=== PATIENT | female | born 1970 | race Caucasian/White ===

== ENCOUNTER 2018-01-31 15:15 | Emergency (ER) | payer SELFPAY ==
[~2018-01-31] VITALS: Ht 170.2 cm; Wt 50.7 kg
[2018-01-31 16:00] LABS: ALANINE AMINOTRANSFERASE 16 U/L (12-78); ALBUMIN 3.6 g/dL (3.4-5.0); ANION GAP 8 mmol/L (5-15); CALCIUM 8.8 mg/dL (8.5-10.1); CHLORIDE 108 mmol/L (98-107)
[2018-01-31 16:05] LABS: ALKALINE PHOSPHATASE 71 U/L (45-117); BILIRUBIN,TOTAL 0.4 mg/dL (0.2-1.0); CREATININE 1.12 mg/dL (0.55-1.02)
[2018-01-31 16:37] LABS: MICROSCOPIC NOT IND
[2018-01-31 16:41] LABS: CULTURE INDICATED? NO
[2018-01-31 16:45] LABS: BASOPHILS # (AUTO) 0.02 x10^3/uL (0-0.1); BASOPHILS % (AUTO) 0 % (0-1); EOSINOPHILS # (AUTO) 0.11 x10^3/uL (0-0.4); EOSINOPHILS % (AUTO) 2 % (1-7); LYMPHOCYTES % (AUTO) 32 % (22-44); MD SCAN; MEAN CORPUSCULAR HEMOGLOBIN 18.7 pg (27.0-34.8); MEAN CORPUSCULAR VOLUME 60.3 fL (80-100); MEAN PLATELET VOLUME 7.6 fL (7.4-10.4); MONOCYTES # (AUTO) 0.36 x10^3/uL (0.2-0.8); MONOCYTES % (AUTO) 6 % (2-9); NEUTROPHILS # (AUTO) 3.62 x10^3/uL (1.8-6.8); NEUTROPHILS % (AUTO) 60 % (42-75); PLATELET COUNT 308 x10^3/uL (130-400); RED BLOOD COUNT 5.28 x10^6/uL (3.82-5.3)
[2018-01-31] MEDS ORDERED: IBUPROFEN 200 MG TABLET ONE (17:28)
[2018-01-31] MEDS ORDERED: ACETAMINOPHEN 325 MG TABLET ONE (17:29)
[2018-01-31] MEDS ORDERED: ACETAMINOPHEN 325 MG TABLET PO ONE (17:30)
[2018-01-31] MEDS ORDERED: IBUPROFEN 200 MG TABLET PO ONE (17:30)
[2018-01-31 19:34] VITALS: BP 129/84
== END 2018-01-31 20:27 | disposition home or self-care (01) ==
LOC: ED 17:24
DX: N83.209 Unspecified ovarian cyst, unspecified side (principal); M54.9 Dorsalgia, unspecified
CPT/HCPCS: 36415; 74176; 80053; 81003; 83690; 84703; 85025; 93975; 99285

== ENCOUNTER 2018-02-03 11:19 | Emergency (ER) | payer SELFPAY ==
[~2018-02-03] VITALS: Ht 170.2 cm; Wt 50.4 kg
[2018-02-03] MEDS ORDERED: SODIUM CHLORIDE FLUSH 10ML SYR IVF ONE (12:30)
[2018-02-03] MEDS ORDERED: HYDROmorphone 2 MG/ML, 1ML IVPush PRN (12:30)
[2018-02-03] MEDS ORDERED: ONDANSETRON 2MG/ML, 2ML IVPush ONE (12:30)
[2018-02-03 12:56] LABS: BASOPHILS # (AUTO) 0.01 x10^3/uL (0-0.1); BASOPHILS % (AUTO) 0 % (0-1); EOSINOPHILS # (AUTO) 0.24 x10^3/uL (0-0.4); EOSINOPHILS % (AUTO) 4 % (1-7); LYMPHOCYTES # (AUTO) 1.55 x10^3/uL (1-3.4); LYMPHOCYTES % (AUTO) 24 % (22-44); MD NO; MEAN CORPUSCULAR HEMOGLOBIN 18.6 pg (27.0-34.8); MEAN CORPUSCULAR HGB CONC 30.3 g/dL (32.4-35.8); MEAN CORPUSCULAR VOLUME 61.3 fL (80-100); MEAN PLATELET VOLUME 7.5 fL (7.4-10.4); MONOCYTES # (AUTO) 0.58 x10^3/uL (0.2-0.8); MONOCYTES % (AUTO) 9 % (2-9); NEUTROPHILS # (AUTO) 4.02 x10^3/uL (1.8-6.8); NEUTROPHILS % (AUTO) 63 % (42-75); PLATELET COUNT 308 x10^3/uL (130-400); RED BLOOD COUNT 5.24 x10^6/uL (3.82-5.3); RED CELL DISTRIBUTION WIDTH 18.5 % (9.6-15.2)
[2018-02-03] MEDS ORDERED: ONDANSETRON 2MG/ML, 2ML ONE (12:56)
[2018-02-03] MEDS ORDERED: HYDROmorphone 2 MG/ML, 1ML ONE (12:56)
[2018-02-03 13:02] LABS: ALBUMIN 3.8 g/dL (3.4-5.0); ANION GAP 9 mmol/L (5-15); CALCIUM 8.8 mg/dL (8.5-10.1); CHLORIDE 108 mmol/L (98-107)
[2018-02-03 13:08] LABS: ALANINE AMINOTRANSFERASE 16 U/L (12-78); ALKALINE PHOSPHATASE 63 U/L (45-117); BILIRUBIN,TOTAL 0.5 mg/dL (0.2-1.0); CREATININE 0.81 mg/dL (0.55-1.02); TOTAL PROTEIN 7.5 g/dL (6.4-8.2)
[2018-02-03 13:29] LABS: MICROSCOPIC INDICATED
[2018-02-03 13:52] LABS: CULTURE INDICATED? YES
[2018-02-03] MEDS ORDERED: SODIUM CHLORIDE 0.9%, 500ML IVBOLUS ONE (14:30)
[2018-02-03] MEDS ORDERED: OMNIPAQUE 350 MG/ML, 100ML BOTTLE ONE (14:41)
[2018-02-03 16:01] VITALS: BP 134/83
[2018-02-03] MEDS ORDERED: ACETAMINOPHEN 500 MG TABLET ONE (17:19)
[2018-02-03] MEDS ORDERED: ACETAMINOPHEN 500 MG TABLET PO ONE (17:30)
== END 2018-02-03 17:33 | disposition home or self-care (01) ==
LOC: ED 13:42
DX: I77.4 Celiac artery compression syndrome (principal); F15.10 Other stimulant abuse, uncomplicated
CPT/HCPCS: 36415; 74174; 80053; 81001; 83690; 84703; 85025; 87086; 96374; 96375; 99285; J1170; J2405; J7040; Q9967